=== PATIENT | female | born 2000 | race Caucasian/White ===

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

== ENCOUNTER 2018-01-07 08:32 | Inpatient (IN) | payer OTHER ==
[2018-01-07] MEDS: LR 1,000 ML IV ×2 (09:57→17:50)
[2018-01-07 10:05] LABS: HEMATOCRIT 35.8 % (36.0-47.0); HEMOGLOBIN 11.7 g/dl (12.0-15.5); MEAN CORPUSCULAR HEMOGLOBIN 27.9 pg (27.0-33.0); MEAN CORPUSCULAR HGB CONC 32.7 g/dl (32.0-36.5); MEAN CORPUSCULAR VOLUME 85.4 fl (80.0-96.0); PLATELET COUNT, AUTOMATED 134 10^3/uL (150-450); RED BLOOD COUNT 4.19 10^6/uL (4.00-5.40); RED CELL DISTRIBUTION WIDTH 13.8 % (11.5-14.5); WHITE BLOOD COUNT 11.6 10^3/uL (4.0-10.0)
[2018-01-07] MEDS: LACTATED RINGER'S 1000 ML IV (10:35)
[2018-01-07] MEDS: OXYTOCIN DRIP 30 UNITS in APPROPRIATE DILUENT 1 EA IV ×2 (13:23→21:04)
[2018-01-07] MEDS ORDERED: FENTANYL 2MCG/ML ROPIVACAINE 0.2% IN 0.9% NACL 200ML IVBAG As Ordered (14:06)
[2018-01-07] MEDS: FENTANYL/ROPIVACAINE/NACL BAG 200 ML EPIDURAL (14:30)
[2018-01-07] MEDS ORDERED: ePHEDrine SULFATE 25 MG/5 ML(5MG/ML) SYRINGE IV (15:15)
[2018-01-07] MEDS ORDERED: EPIDURAL/PCA KEYS XX (15:15)
[2018-01-07] MEDS ORDERED: REFRIGERATOR IV KEYS XX (15:15)
[2018-01-07] MEDS ORDERED: EPIDURAL COMMENT XX (15:15)
[2018-01-07] MEDS ORDERED: diphenhydrAMINE INJ 50MG/ML VIAL (J1200) IV (15:15)
[2018-01-07] MEDS ORDERED: ONDANSETRON 4MG/2ML VIAL (J2405) IV (15:15)
[2018-01-07] MEDS ORDERED: LACTATED RINGER'S 1000 ML IV (15:15)
[2018-01-07] MEDS ORDERED: NALOXONE INJ 0.4 MG/1 ML VIAL (J2310) IV (15:15)
[2018-01-07] MEDS: ceFAZolin SOD 1 GM in D5W MINI-BAG PLUS 50 ML IV (17:50)
[2018-01-07] MEDS ORDERED: DOCUSATE SODIUM 100 MG CAP PO (21:15)
[2018-01-07] MEDS ORDERED: ACETAMINOPHEN 500 MG TAB PO (21:15)
[2018-01-07] MEDS ORDERED: ANUSOL HC CREAM 30GM TOP (21:15)
[2018-01-07] MEDS ORDERED: MEASLES,MUMPS,RUBELLA VACCINE INJ (MMR-II) (90707) SC (21:15)
[2018-01-07] MEDS ORDERED: RHOGAM 300 MCG (1500 IU) INJ (J2790) IM (21:15)
[2018-01-07] MEDS ORDERED: METHYLERGONOVINE MALEATE 0.2 MG TAB PO (21:15)
[2018-01-07] MEDS: IBUPROFEN 800 MG TAB PO (22:14)
[2018-01-08] MEDS ORDERED: INFLUENZA QUADRIVALENT PF VACCINE 0.5ML SYRINGE (90686) IM (09:00)
[2018-01-08] MEDS: PRENATAL VITAMINS CHEWABLE TABLET PO (09:01)
[2018-01-08] MEDS: DIBUCAINE 1% OINTMENT 30GM TOP (09:24)
[2018-01-08] MEDS: IBUPROFEN 800 MG TAB PO ×2 (09:24→17:12)
[2018-01-09] MEDS: PRENATAL VITAMINS CHEWABLE TABLET PO (09:22)
[2018-01-09] MEDS: IBUPROFEN 800 MG TAB PO (09:23)
[2018-01-09] MEDS: INFLUENZA QUADRIVALENT PF VACCINE 0.5ML SYRINGE (90686) IM (10:00)
== END 2018-01-09 11:20 | disposition home or self-care (01) | DRG 807 ==
LOC: M LDO 08:32 → M LDI 09:27 → M OBS 22:25
PROVIDERS: Advanced Practice Midwife
PROC: 10E0XZZ Delivery of Products of Conception, External Approach (ICD-10-PCS; principal; 2018-01-07)
PROC: 0KQM0ZZ Repair Perineum Muscle, Open Approach (ICD-10-PCS; 2018-01-07)
DX: O99.824 Streptococcus B carrier state complicating childbirth (principal); Z37.0 Single live birth; Z3A.39 39 weeks gestation of pregnancy; Z88.0 Allergy status to penicillin; Z88.1 Allergy status to other antibiotic agents; O70.1 Second degree perineal laceration during delivery